=== PATIENT | male | born 1940 | race Caucasian/White ===

== ENCOUNTER 2018-09-04 14:31 | Inpatient (IN) ==
[2018-09-04 17:37] LABS: BASO# 0.01 X1000 (0.0-0.2); BASO% 0.1 % (0.0-0.8); EOS# 0.01 X1000 (0.0-0.7); EOS% 0.1 % (0.0-10.0); HEMATOCRIT 43.1 % (42.0-52.0); HEMOGLOBIN 14.4 g/dL (14.0-18.0); IMM GRAN# 0.03 X1000 (0.0-0.04); IMM GRAN% 0.3 % (0.0-0.5); LYMPH# 1.42 X1000 (1.2-3.4); LYMPH% 14.7 % (20.5-51.1); MCH 28.5 PG (27-31); MCHC 33.4 g/dL (33-37); MCV 85.3 FL (81-99); MONO# 0.97 X1000 (0.11-0.59); MONO% 10.1 % (1.7-9.3); MPV 9.5 FL (7.4-10.4); NEUT# 7.19 X1000 (1.4-6.5); NEUT% 74.7 % (42.2-75.2); PLT 253 X1000 (130-400); RBC 5.05 XMIL (4.7-6.1); RDW 14.2 % (11.5-14.5); WBC 9.63 X1000 (4.8-10.8)
[2018-09-04] MEDS: ROCEPHIN 1 GM in NS 50 ML IV SCH (17:59)
[2018-09-04 18:07] LABS: AGAP 14; ALB/GLOB RATIO 1.3; ALBUMIN 4.3 g/dL (3.5-5.0); ALKALINE PHOSPHATASE 41 U/L (32-122); BUN 15 mg/dL (8-22); CALCIUM 8.7 mg/dL (8.8-10.2); CHLORIDE 98 mmol/L (98-107); COSMO 270; CREATININE 0.9 mg/dL (0.7-1.2); ESTIMATED GFR > 60; GLUCOSE 109 mg/dL (70-104); GOT 20 U/L (10-34); GPT 14 U/L (10-44); POTASSIUM 4.1 mmol/L (3.5-5.1); SODIUM 134 mmol/L (136-145); TCO2 22 mmol/L (25-35); TOTAL BILIRUBIN 0.57 mg/dL (0.20-1.00); TOTAL PROTEIN 7.6 g/dL (6.3-8.3)
[2018-09-04] MEDS: POTASSIUM CHLORIDE 10 MEQ in 1/2 NS 1,000 ML IV SCH (18:18)
--- NOTE | 2018-09-04 18:51 | HISTORY AND PHYSICAL ---
HISTORY OF PRESENT ILLNESS: Mr. Shaver is an 78-year-old, white gentleman, comes to the office with intermittent mental confusion and with history of frequent falls and some weakness on the left side. He has been in good health, except for some intermittent mental confusion in last few months. He has mild problems with arthritis and borderline diabetes. MEDICATIONS: He has been on metformin 500 mg daily. PAST SURGICAL HISTORY: Negative for any surgeries. SOCIAL HISTORY: He has not been a smoker. Does not drink or use any illicit drugs. ALLERGIES: He is not allergic to any medications. REVIEW OF SYSTEMS: He probably cannot contribute anything except the family says that he has been falling quite often lately and he was found fallen in his shop and was held by the customer. PHYSICAL EXAMINATION: GENERAL: Patient is alert, but slightly confused. VITAL SIGNS: Temperature 101.9 degrees Fahrenheit, pulse 111 per minute, respiratory rate 20, blood pressure 141/71. HEENT: Head normocephalic. PERRLA. Fundus examination not done. NECK: Supple. JVP normal. ENT examination unremarkable. There is no evidence of lymphadenopathy, thyroid enlargement, pedal edema, calf tenderness, anemia, cyanosis or clubbing. Peripheral pulses well felt. BREAST EXAM: Normal. CHEST: Normal inspection. LUNGS: Clear on auscultation. HEART: PMI in the normal position. Heart sounds normal. No murmur, gallop or rub noted. ABDOMEN: Nondistended. Hernial orifices normal. No guarding, rigidity, free fluid, masses, or organomegaly. Bowel sounds normal. RECTAL: Deferred. ELECTRICAL INSPECTOR: Higher functions normal with intermittent confusion. Cranial nerves normal. 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 Deep tendon reflexes normal. Plantars downgoing. Skull and spine examination normal for age. No cerebellar signs or signs of meningeal irritation. SKIN: Unremarkable except for presence of dehydration. CLINICAL IMPRESSION: 1. Acute mental status change. 2. Fever. 3. Dehydration. PLAN: Start IV fluids and work him up for mental status change. cc: Abhi Bullock MD MTDD
--- NOTE | 2018-09-04 19:22 | Diag Imaging Result Doc PS360 ---
EXAM: CT HEAD W/O CONTRAST INDICATION: AMS TECHNIQUE: This exam was performed using automated exposure control, adjustment of mA or kV according to patient size, and/or use of iterative reconstruction technique. COMPARISON: None. FINDINGS: There is patchy low attenuation in the periventricular and subcortical white matter suggesting moderate microangiopathy. There is a focus of low attenuation involving the thalamus on the right. This may be chronic. However, a subacute lacunar infarct is possible. There is no definite acute infarct given the limited sensitivity of CT versus MRI. There is no discrete intracranial mass, mass effect, or intracranial hemorrhage. There is extensive left frontal, left ethmoid, and left maxillary sinus mucosal disease. There is complete opacification of the left maxillary sinus with mild expansion suggesting a small mucocele. Surrounding soft tissues and bony structures are essentially unremarkable, otherwise. IMPRESSION: 1.Small focus of low attenuation involving the thalamus on the right which could represent a small subacute lacunar infarct. However, it is probably chronic. 2.Suggestion of moderate white matter microangiopathy. 3.Extensive sinus mucosal disease including complete opacification of the left maxillary sinus with expansion, which suggests a small mucocele. Electronically signed by Edison Hernandez 09/04/2018 7:19 PM
--- NOTE | 2018-09-04 19:23 | Diag Imaging Result Doc PS360 ---
EXAM: CHEST-2 VIEWS INDICATION: AMS TECHNIQUE: 2 views COMPARISON: None. FINDINGS: There is mild elevation of the right hemidiaphragm and suggestion of mild right basilar subsegmental atelectasis. Lungs are grossly clear, otherwise. There is no discrete pleural fluid collection or pneumothorax. The cardiomediastinal silhouette and central vasculature are grossly unremarkable. IMPRESSION: Mild bibasilar subsegmental atelectasis. No definite acute pathology, otherwise. Electronically signed by Edison Hernandez 09/04/2018 7:21 PM
[2018-09-05] MEDS ORDERED: INSULIN PEN NEEDLES ONE (00:10)
--- NOTE | 2018-09-05 07:25 | EKG Report ---
Test Performed on : 09/04/2018 4:56:56 PM Test Reason : AMS Blood Pressure : / mmHG Vent. Rate : 102 BPM Atrial Rate : 102 BPM P-R Int : 158 ms QRS Dur : 100 ms QT Int : 362 ms P-R-T Axes : 031 -32 070 degrees QTc Int : 471 ms Sinus tachycardia. Left axis deviation Left ventricular hypertrophy with repolarization abnormality Inferior infarct , age undetermined Cannot rule out Anteroseptal infarct , age undetermined Abnormal ECG No previous ECGs available Confirmed by Cheryl LYMAN, Winston Giles ([id number]) on 09/05/2018 8:48:13 AM
--- NOTE | 2018-09-05 11:16 | PROGRESS NOTE ---
DATE: 09/05/2018 SUBJECTIVE: Mr. Shaver is feeling somewhat better. He still has slight weakness in the left hand. The CT scan of the brain reveals presence of a small attenuation ridge in the thalamus on the right side, which is probably a subacute lacunar infarct. He has [id number] white matter microangiopathy and left maxillary sinusitis. I think his fever is coming from the sinusitis. We will continue with the IV fluids, as well as IV antibiotics. I am going to order some physical therapy and carotid flow studies, as well as echocardiogram. -1 cc: Abhi Bullock MD
[2018-09-05] MEDS: POTASSIUM CHLORIDE 10 MEQ in 1/2 NS 1,000 ML IV SCH (14:40)
[2018-09-05] MEDS: ROCEPHIN 1 GM in NS 50 ML IV SCH (16:56)
--- NOTE | 2018-09-05 18:14 | Carotid Study ---
DATE: 09/05/2018 PROCEDURE: Carotid duplex imaging. REFERRING PHYSICIAN: Dr. Bullock INTERPRETING PHYSICIAN: Dr. Mendoza TECH: Charlie INDICATIONS: CVA. OBSERVED DATA RIGHT LEFT Brachial Blood Pressure Carotid Pulse Bruits: Carotid/Sub DIAGRAM OF ULTRASOUND IMAGING R L RIGHT INT EXT INT EXT LEFT Joshua (cm/s) Joshua (cm/s) Subclavian 101/0 Subclavian 85/0 CCA Proximal 40/0 CCA Proximal 56/4 CCA Distal 49/7 CCA Distal 48/9 Bulb 41/0 Bulb 46/8 ICA Proximal 33/6 ICA Proximal 48/9 ICA Mid 53/11 ICA Mid 46/11 ICA Distal 57/13 ICA Distal 62/15 ECA 69/3 ECA 58/4 Vertebral 64/13 A Vertebral 35/8 A ICA/CCA Ratio 1.17 ICA/CCA Ratio 1.11 % Stenosis 0 to 39 % Stenosis 0 to 39 FINDINGS: In the right carotid bulb, there is a focal plaque that does not cause turbulence of flow or elevation of velocities. Similarly on the left, there is more broad based atherosclerotic changes but no hemodynamically significant lesion. PHYSICIAN INTERPRETATION: Mild atherosclerotic changes bilaterally but no hemodynamically significant lesion noted. cc: MD Abhi Chavez MD
--- NOTE | 2018-09-05 22:45 | EEG REPORT ---
DATE: 09/04/2018 EEG #: [id number] COMMENT: This is a digitally recorded EEG on an 78-year-old patient with reported intermittent confusion, frequent falls. FINDINGS: Initially, there is muscle contraction which obscures the EEG. Most of the record is recorded without muscle contraction obscuring. There is medium and higher amplitude 8.5 to 9 Hz posterior rhythm present bilaterally with uncertain reactivity to eye opening. Background contains polymorphic and rhythmic theta frequencies over the frontal and central regions symmetrically. Drowsing occurred with appearance of more generalized slowing and attenuation of the posterior rhythm. Stage 2 sleep was recorded briefly with symmetric features. Photic stimulation did not alter the record. Hyperventilation was not done. No definite epileptiform discharge was identified. INTERPRETATION: Abnormal EEG because of mild generalized slowing. CORRELATION: This is indicative of a diffuse encephalopathy and is nonspecific, particularly for an octogenarian. The absence of epileptiform discharges on a single EEG does not exclude a clinical diagnosis of seizures, but there is nothing on this record to suggest the presence of a seizure disorder. cc: MD Abhi Gil III, MD
[2018-09-06] MEDS: POTASSIUM CHLORIDE 10 MEQ in 1/2 NS 1,000 ML IV SCH ×2 (03:01→08:17)
[2018-09-06] MEDS: ASPIRIN PO SCH (08:15)
--- NOTE | 2018-09-06 11:16 | Diag Imaging Result Doc PS360 ---
EXAM: RIBS ONLY RIGHT 09/06/2018 HISTORY: trauma TECHNIQUE: Right rib series 3 views COMMENT: There is no evidence of pneumothorax or pleural fluid collection. There are fractures of the distal sixth and seventh ribs which are only minimally displaced. IMPRESSION: Fifth and sixth rib fractures as described. Electronically signed by Derrek Aggarwal 09/06/2018 11:14 AM
--- NOTE | 2018-09-06 11:51 | PROGRESS NOTE ---
DATE: 09/06/2018 SUBJECTIVE: Mr. Shaver is doing fairly well. His EEG shows some slowing. He has right thalamic small infarct and microvascular changes in the brain. Physical therapy has been ordered. However, they have not started yet. Echocardiogram has been ordered also. His carotid Doppler reveals generalized atherosclerosis; however, there is no hemodynamically significant stenosis. I am going to reduce his IV fluids, and we will continue the IV Rocephin for the time being. His oral intake is improving. When he fell, he injured his right ribcage. I am going to x-ray the right ribs and the right foot. -1 cc: Abhi Bullock MD
[2018-09-06] MEDS: ROCEPHIN 1 GM in NS 50 ML IV SCH (16:52)
[2018-09-06] MEDS: D5 1/2 NS + KCL 10 MEQ 1,000 ML IV SCH (16:54)
--- NOTE | 2018-09-06 22:36 | ECHO REPORT ---
ORDER DATE: 09/05/2018 MEASUREMENTS: Left ventricular end-diastolic 3.9, end-systolic 2.7, septal thickness 1.6, posterior wall thickness 1.2, aortic root 3.5, left atrium 4.3. SUMMARY: 1. Fair quality study. Intravenous echo contrast agent Definity was utilized to enhance endocardial definition. 2. Fibrocalcific changes of aortic valve demonstrated with reduced aortic valve leaflet mobility but adequate aortic valve opening evident. Peak gradient across aortic valve is 37 mmHg with a mean gradient 25 mmHg. Values suggests moderate aortic stenosis. Mitral, tricuspid and pulmonic valves are without evidence of structural abnormality. There is trace mitral regurgitation, trace tricuspid regurgitation, and mild pulmonic insufficiency. Estimated systolic PA pressure by Doppler is 35 to 40 mmHg suggesting mild pulmonary hypertension. Aortic root is normal in size. There is mild dilatation of proximal ascending aorta. 3. Normal left ventricular chamber size with mild to moderate left hypertrophy demonstrated. There is asymmetric hypertrophy of the basal septum. There is also prominent trabeculations involving the apex left ventricle. Estimated ejection fraction appears to be least 60%. There is hypokinesis of mid to apical septal wall. Doppler suggests grade 1 left ventricular diastolic dysfunction. The left atrium is mildly enlarged. Right atrium, right ventricle are normal in size with grossly preserved right ventricular systolic performance. 4. No pericardial effusion. 5. Appearance of inferior vena cava suggests normal central venous pressure. cc: MD Abhi Remy MD
[2018-09-07] MEDS: ASPIRIN PO SCH (09:19)
[2018-09-07] MEDS ORDERED: ULTRAM PO PRN (11:38)
--- NOTE | 2018-09-07 12:00 | PROGRESS NOTE ---
DATE: 09/07/2018 Mr. Shaver is doing fairly well. He is seriously considering rehab. He has fractured 2 ribs from the falls, so the false are serious and he is afraid he will break more bones. Physical therapy has not started working with him yet. Echocardiogram revealed calcification of the aortic wall. He had a stroke. Overall condition is otherwise stable. Will continue with the current management. -5 cc: Abhi Bullock MD
[2018-09-07] MEDS: D5 1/2 NS + KCL 10 MEQ 1,000 ML IV SCH (16:25)
[2018-09-07] MEDS: ROCEPHIN 1 GM in NS 50 ML IV SCH (16:26)
[2018-09-08] MEDS: ASPIRIN PO SCH (08:22)
--- NOTE | 2018-09-08 09:45 | PROGRESS NOTE ---
DATE: 09/08/2018 Mr. Shaver has been recovering from the stroke. He is getting physical therapy. He is still slightly weak on the left side. He has been having a lot of chest pain from refractures and cannot stand the rib belt while he is in bed. He lives by himself and wants to get some therapy and we will get him to rehab. -8 cc: Abhi Bullock MD
[2018-09-08] MEDS: D5 1/2 NS + KCL 10 MEQ 1,000 ML IV SCH ×2 (17:18→18:34)
[2018-09-08] MEDS: ROCEPHIN 1 GM in NS 50 ML IV SCH (17:19)
--- NOTE | 2018-09-09 09:30 | PROGRESS NOTE ---
DATE: 09/09/2018 Mr. Shaver is doing better. He is recovering from a stroke. He had a bad day yesterday, a lot of chest pain from the fracture ribs. His oral intake is a little poor. We are going to continue the current management. We will transfer him to rehab as soon as a bed is available. cc: Abhi Bullock MD
--- NOTE | 2018-09-09 09:37 | DISCHARGE SUMMARY ---
ADMISSION DATE: 09/04/2018 DISCHARGE DATE: 09/09/2018 Mr. Shaver is an 78-year-old white gentleman had frequent falls and had mental status change. He was having some dehydration issues also. EEG revealed the presence of abnormal EEG because of mild generalized slowing. Echocardiogram was unremarkable. EKG revealed sinus tachycardia, left axis deviation, left ventricular hypertrophy, inferior wall infarction, age undetermined. Carotid Doppler revealed the presence of generalized atherosclerotic changes, but no hemodynamically significant changes noted. CT scan of the brain revealed in the right thalamus, there was subacute lacunar infarct, moderate white matter microangiopathy, extensive sinus mucosal drainage. COURSE IN THE HOSPITAL: When he came in, he had high fever and was given IV Rocephin. Physical therapy was started. He was placed on aspirin for the stroke. He did have clinical signs suggestive of stroke with left-sided mild weakness. He is getting physical therapy. He is going to rehab tentatively today to [facility]. cc: Abhi Bullock MD
[2018-09-09] MEDS: ASPIRIN PO SCH (09:38)
[2018-09-09] MEDS ORDERED: DULCOLAX PR PRN (15:38)
[2018-09-09] MEDS: D5 1/2 NS + KCL 10 MEQ 1,000 ML IV SCH (16:59)
[2018-09-09] MEDS: ROCEPHIN 1 GM in NS 50 ML IV SCH (17:02)
[2018-09-09] MEDS ORDERED: DULCOLAX PR ONE (19:30)
[2018-09-09] MEDS ORDERED: TYLENOL PO ONE (21:54)
[2018-09-10] MEDS: ASPIRIN PO SCH (09:56)
--- NOTE | 2018-09-10 10:08 | PROGRESS NOTE ---
DATE: 09/10/2018 SUBJECTIVE: Mr. Shaver is feeling better today. His lungs are clear. Heart sounds are normal. He still has a lot of rib cage pain. He still has slight weakness in the left side. We will send him to rehab today. We did not have a bed yesterday, and he could not be discharged. -5 cc: Abhi Bullock MD
[2018-09-10 12:06] VITALS: BP 145/77
== END 2018-09-10 13:04 | DRG 65 ==
LOC: DIRADM 14:31 → 4N 15:20
PROVIDERS: ADMIT Internal Medicine; ATTEND Internal Medicine
CPT/HCPCS: 70450; 71020; 71046; 71100; 80053; 82607; 82746; 85025; 87040; 93005; 93010; 93306; 93880; 95816; 97161; 97530; A9270; C8929; J0696; J3480; Q9957